=== PATIENT | female | born 1975 | race American Indian/Alaskan Native ===

== ENCOUNTER 2021-05-28 06:34 | Day surgery (SDC) | payer MEDICAID, OTHER ==
[2021-05-25 12:16] LABS: Hematocrit 42.6 % (30.3-42.9); Hemoglobin 13.3 gm/dl (10.1-14.3); Mean Corpuscular HGB Conc 31 % (30-34); Mean Corpuscular Volume 84 fl (79-97); Platelet Count 319 K/mm3 (140-440); Red Blood Count 5.06 M/mm3 (3.65-5.03); Red Cell Distribution Width 16.4 % (13.2-15.2)
[2021-05-25 12:27] LABS: Blood Urea Nitrogen 8 mg/dL (7-17); Calcium 8.8 mg/dL (8.4-10.2); Hemolysis Index 15
[2021-05-25 12:42] LABS: BUN/Creatinine Ratio 13
[~2021-05-28 06:34] MED LIST: LACTATED RINGERS 1,000 ML IV SCH; MIDAZOLAM 2 MG/2 ML INJ IV NR
--- NOTE | 2021-05-28 07:41 | Anesthesia Consultation ---
Anesthesia Consult and Med Hx Date of service: 05/28/21 - Airway Anesthetic Teeth Evaluation: Good ROM Head & Neck: Adequate Mental/Hyoid Distance: Adequate Mallampati Class: Class II Intubation Access Assessment: Probably Good - Pulmonary Exam CTA: Yes - Cardiac Exam Cardiac Exam: RRR - Pre-Operative Health Status ASA Pre-Surgery Classification: ASA2 Proposed Anesthetic Plan: General (possiblility to convert), MAC (1st) - Pulmonary Hx Asthma: Yes (Last used inhaler 3 mos ago) - Cardiovascular System Hx Hypertension: Yes - Central Nervous System Hx Psychiatric Problems: Yes - Endocrine Hx Non-Insulin Dependent Diabetes: Yes (diet controlled) - Hematic Hx Anemia: Yes - Other Systems Hx Cancer: No Hx Obesity: Yes
--- NOTE | 2021-05-28 07:41 | Anesthesia Day of Surgery ---
Anesthesia Day of Surgery - Day of Surgery Patient Examined: Yes Patient H&P Reviewed: Yes Patient is NPO: Yes
[2021-05-28] MEDS ORDERED: SILVER NITRATE APPLICATOR 1 EA TP ONE (09:33)
[2021-05-28] MEDS ORDERED: propofoL 200 MG/20 ML VIAL IV ONE (09:42)
[2021-05-28] MEDS ORDERED: KETAMINE/STERILE WATER 50 MG/ML SYRINGE ONE (09:42)
[2021-05-28] MEDS ORDERED: SODIUM CHLORIDE 0.9% IRRIG SOLN 2000 ML IR ONE (10:04)
[2021-05-28] MEDS ORDERED: KETOROLAC 30 MG/1 ML INJ ONE (10:10)
[2021-05-28] MEDS ORDERED: ONDANSETRON 4 MG/2 ML INJ ONE (10:10)
[2021-05-28] MEDS ORDERED: GLYCOPYRROLATE 0.4 MG/2 ML INJ ONE (10:10)
[2021-05-28] MEDS ORDERED: dexAMETHasone 20 MG/5 ML VIAL ONE (10:10)
--- NOTE | 2021-05-28 10:12 | Operative Report ---
Operative Report Operative Report: Preoperative diagnosis: Retained IUD with pelvic pain Postoperative diagnosis: Same Procedure: Operative hysteroscopy dilation and curettage with removal of IUD Surgeon: Dr. Colleen Ruiz Anesthesia: GETA EBL: Minimal Urine output: None IV fluids:250ml Complications: None Finding: Procedure: Patient was counseled in preop holding area about risks benefits possible complications as well as alternatives to the procedure. Informed consent was obtained. She was taken to the OR where she received excellent general endotracheal anesthesia. She was then placed in a dorsal lithotomy position. Exam under anesthesia revealed normal-sized uterus in the midline with no palpable masses. Patient was then prepped and draped in a sterile fashion. A timeout was verified. Patient was straight cathed with a red rubber catheter, with 200 cc urine obtained. A speculum was placed in the vaginal vault, the cervix was noted to be pink with no lesions. A single-tooth tenaculum was placed on the anterior lip of the cervix and the endometrium sounded to 7 cm. The cervix was then dilated to allow for the passage of the hysteroscope. The uterus was hydrodistended, the endometrium was noted to be proliferative and the IUD was noted at the fundus. The IUD was removed with operative hysteroscopic graspers atraumatically. A Sharp curettage was performed with the Kevorkian curette. Endometrial samplings were sent to pathology. At the completion of the procedure the hysteroscope, tenaculum, and speculum were removed from the uterus cervix and vagina respectively. EBL minimal. Patient extubated and taken to the PACU in stable condition. Patient's family notified of stable condition for completion of the procedure. All sponge needle instrument counts correct x2. Patient will follow-up in the outpatient setting in 1 week. Jarett BURDICK
[2021-05-28] MEDS ORDERED: HYDROmorphone 1 MG/1 ML INJ IV PRN ×2 (10:23)
[2021-05-28] MEDS ORDERED: ONDANSETRON 4 MG/2 ML INJ IV PRN (10:23)
--- NOTE | 2021-05-28 11:14 | Post Anesthesia Evaluation ---
- Post Anesthesia Evaluation Patient Participated: Yes Airway Patent: Yes Stable Respiratory Function: Yes Nausea/Vomiting: No Temp > 96.8F: Yes Pain Manageable: Yes Adequeate Hydration: Yes Anesthesia Complications: No
[2021-05-28 11:41] VITALS: BP 106/61
== END 2021-05-28 11:30 | disposition home or self-care (01) ==
LOC: OR 06:34
PROVIDERS: ATTEND Obstetrics & Gynecology
PROC: 0UC98ZZ Extirpation of Matter from Uterus, Via Natural or Artificial Opening Endoscopic (ICD-10-PCS; principal; 2021-05-28)
DX: Z30.432 Encounter for removal of intrauterine contraceptive device (principal); D50.8 Other iron deficiency anemias; J45.909 Unspecified asthma, uncomplicated; I10 Essential (primary) hypertension; E11.9 Type 2 diabetes mellitus without complications; E66.9 Obesity, unspecified; K21.9 Gastro-esophageal reflux disease without esophagitis; F41.9 Anxiety disorder, unspecified; F32.9 Major depressive disorder, single episode, unspecified; Z91.040 Latex allergy status; Z20.822 Contact with and (suspected) exposure to COVID-19; Z79.899 Other long term (current) drug therapy; Z98.890 Other specified postprocedural states
CPT/HCPCS: 36415; 58562; 80048; 82962; 84703; 85027; 88300; 88305; J1100; J1170; J1815; J1885; J2250; J2405; J2704; J3490; J7120; U0003